=== PATIENT | female | born 1960 | race Caucasian/White ===

== ENCOUNTER 2019-10-06 08:26 | Outpatient (CLI) | payer MEDICARE ==
[~2019-10-06] VITALS: Ht 162.6 cm; Wt 103.7 kg
--- NOTE | ~2019-10-06 | OP ---
PATIENT NAME: CURRY CALLE MEDICAL RECORD: [id number] :56 LOCATION:D.CAT ADMISSION DATE: SURGEON: LIA VAZQUEZ MD DATE OF OPERATION: 10/06/2019 PROCEDURES: 1. PTCA stent RCA. 2. Selective coronary angiography. INDICATION: Angina and coronary artery disease. PROCEDURE IN DETAIL: After informed consent was obtained and after a detailed description of the risks, benefits as well as alternative therapies, the patient elected to proceed with angiogram and angioplasty. The right femoral area was prepped and draped in normal sterile fashion. Right femoral artery was cannulated via modified Seldinger technique with placement of 6-Nepali sheath. All catheters exchanged through this sheath. FINDINGS: The right coronary has long area of 80% stenosis in mid vessel. This was addressed with a 2.75 x 38 and 2.5 x 12 both Daniel stents. Result was 0% residual stenosis. OVERALL IMPRESSION: Successful percutaneous transluminal coronary angioplasty stent of the right coronary artery going from 80% initial stenosis to 0% residual. TRANSINT:[id number] Voice Confirmation ID: [id number] DOCUMENT ID: [id number] LIA VAZQUEZ MD CC: [id number] DICTATION DATE: 10/06/19 1242 RN BABY: 10/06/192229 DEP CLI 10/06/19 [place] [id number] [place] [id number]
--- NOTE | ~2019-10-06 | HEMODYNAMI ---
PATIENT:CURRY CALLE MEDICAL RECORD: [id number] : 56 LOCATION:D.CAT ADMISSION DATE: 10/06/19 Generatedon:10/06/201912:43 Patient name: CURRY CALLE Patient #: [id number] SSN: [id number] : 1960 Date of study: 10/06/2019 Page: Of Hemodynamic Procedure Report Patient Data Patient Demographics Procedure consent was obtained First Name: CURRY Gender: Female Last Name: ALVA : 1960 [facility] Initial: K Age: 59 year(s) Patient #: [id number] Race: SSN: [id number] Additional ID: [id number] Contact details Address: [address] [place] [address] [employer] State: [place] City: [place] Zip code: [address] Past Medical History Allergies: No known allergies Admission Admission Data Admission Date: 10/06/2019 Admission Time: 8:26 Arrival Date: 10/06/2019 Arrival Time: 8:26 Admit Source: Other Insurance Payor: Private health insurance [facility] #: [id number] Height (in.): 25.2 BSA: 1.05 (m2) Height (cm.): 64 BMI: 253.6 (kg/m2) Weight (lbs.): 229 Weight (kg.): 103.87 Lab Results Lab Result Date: 10/01/2019 Lab Result Time: 0:00 Biochemistry Name Units Result Min Max BUN mg/dl 52 --(----)-* 7 18 Creatinine mg/dl 2.5 --(----)-* 0.6 1.3 eGFR ml/min 21 *-(----)-- 90 120 NONAFRICAN CBC Name Units Result Min Max Hemoglobin g/dl 11.7 *-(----)-- 13.5 17.5 Procedure Procedure Types Cath Procedure Diagnostic Procedure Sedation Charges Moderate Sedation up to 15 minutes PCI Procedure Coronary Stent Coronary Stent Initial Hemochron ACT Test Procedure Description Procedure Date Procedure Date: 10/06/2019 Procedure Start Time: 12:25 Procedure End Time: 12:41 Procedure Staff Name Function Jg Rizvi MD Performing Physician Radha Pizarro RT Monitor Kayli Mao RT Scrub Hermelinda Gonzalez RN Nurse Indication Angina Procedure Data Cath Procedure Fluoroscopy Diagnostic fluoroscopy Total fluoroscopy Time: 3.9 time: 3.9 min min Diagnostic fluoroscopy Total fluoroscopy dose: dose: 259.48 mGy 259.48 mGy Contrast Material Contrast Material Type Amount (ml) Isovue 300 43 Entry Location Entry Primary Successful Side Size Upsize Upsize Entry Closure Succes sful Closure Location (Fr) 1 (Fr) 2 (Fr) Remarks Device Remarks Femoral Right 6 Fr Exoseal artery Short Estimated blood loss: 10 ml Procedure Complications No complications Procedure Medications Medication Administration Route Dosage 0.9% NaCl I.V. 100 ml/hr Oxygen etCO2 Nasal cannula 2 l/min Lidocaine 2% added to field 20 Heparin Flush Bag added to field 2 bags (1000units/500ml NS) Versed I.V. 2 mg Fentanyl I.V. 50 mcg Heparin Bolus I.V. 4000 units Fentanyl I.V. 50 mcg Hemodynamics Rest BSA: 1.05 (m2) HGB: 11.7 (g/dl) O2 Consumption: Estimated: 101.05 (ml/min) O2 Co nsumption indexed: Estimated:96.24 (ml/min/m) Heart Rate: 75 (bpm) Snapshots Pre Cath Intra NCS Post Cath Vital Signs Time Heart Resp SPO2 etCO2 NIBP (mmHg) Rhythm Pain Sedation Rate (ipm) (%) (mmHg) Status Level (bpm) 12:06:53 76 21 95 26.6 159/84(134) NSR 0 (11) 10(A) , No pain 12:11:13 77 20 97 21.4 168/94(132) NSR 0 (11) 10(A) , No pain 12:15:35 77 18 94 28.8 162/79(119) NSR 0 (11) 10(A) , No pain 12:19:57 73 13 99 30.2 159/72(112) NSR 0 (11) 10(A) , No pain 12:24:11 71 13 98 32.5 148/79(121) NSR 0 (11) 9(A) , No pain 12:28:29 71 12 98 31 146/75(108) NSR 0 (11) 9(A) , No pain 12:32:49 72 14 98 22.9 144/72(109) NSR 0 (11) 9(A) , No pain 12:37:09 75 13 99 31 154/76(118) NSR 0 (11) 10(A) , No pain 12:41:26 75 14 98 31 154/79(114) NSR 0 (11) 10(A) , No pain Medications Time Medication Route Dose Verified Delivered Reason Notes Effectiveness by by 12:06:13 0.9% NaCl I.V. 100 Jg Amparo used for ml/hr Belkys Alexis retread builder 12:06:20 Oxygen etCO2 2 Jg Amparo used for Nasal l/min Belkys Alexis procedure cannula RN 12:06:25 Lidocaine 2% added 20ml Jg Jg for local to vial Belkys Rizvi MD anesthetic field 12:06:29 Heparin Flush added 2 Jg Jg used for Bag to bags Belkys Rizvi MD procedure (1000units/500ml field NS) 12:22:17 Versed I.V. 2 mg Jg Shen for sedation Belkys Gonzalez RN 12:22:24 Fentanyl I.V. 50 Jg Tellezie for sedation mcg Belkys Gonzalez RN 12:28:06 Heparin Bolus I.V. 4000 Jg Tellezie for verif ied units Belkys Gonzalez RN anticoagulation with dr rizvi 12:33:35 Fentanyl I.V. 50 Jg Shen for sedation mcg Belkys Gonzalez RN Procedure Log Time Note 11:30:07 Informed consent obtained and on chart 11:44:38 Diagnostic Cath Status : Elective 11:44:59 Indication : Angina 11:45:27 Arrival Date: 10/06/2019 8:26:00 AM 11:45:31 Admit Source: Other 11:45:54 Insurance Payor : Private health insurance 11:46:07 Patient Height : 25.2 inches 11:46:11 Patient Weight : 229 lbs 11:51:51 Oksana Chavez RT(R) sent for patient. Start room use. 11:51:51 Time tracking: Regular hours (M-F 7:00 - 5:00) 11:51:56 Plan of Care:Hemodynamics will remain stable., Cardiac rhythm will remain stable., Comfort level will be maintained., Respiratory function will remain adequate., Patient/ family verbilizes understanding of procedure., Procedure tolerated without complication., Recovers from procedure without complications.. 12:03:51 Patient received from Pre/Post Procedure Room to [facility] 3 Alert and oriented. Tansferred to table in Supine position. 12:03:55 Warm blankets applied, and darryl hugger turned on for patient comfort. 12:03:56 Correct patient and procedure confirmed by team. 12:03:57 ECG and BP/O2 sat monitors applied to patient. 12:05:38 Vital chart was started 12:05:40 Baseline sample Acquired. 12:06:13 0.9% NaCl 100 ml/hr I.V. was administered by Amparo Alexis RN; used for procedure; Verbal order read back and verified. 12:06:20 Oxygen 2 l/min etCO2 Nasal cannula was administered by Amparo Alexis RN ; used for procedure; Verbal order read back and verified. 12:06:25 Lidocaine 2% 20ml vial added to field was administered by Jg Rizvi MD; for local anesthetic; Verbal order read back and verified. 12:06:29 Heparin Flush Bag (1000units/500ml NS) 2 bags added to field was administered by Jg Rizvi MD; used for procedure; Verbal order read back and verified. 12:08:19 Rhythm: sinus rhythm 12:08:24 Full Disclosure recording started 12:08:25 - 12:08:31 H&P Date Dictated: 10/06/2019 H&P Addendum completed by physician on day of procedure. (MUST COMPLETE FOR ALL OUTPATIENTS), New H&P dictated by physician.. 12:08:33 Pre-procedure instructions explained to patient. 12:08:33 Pre-op teaching completed and patient verbalized understanding. 12:08:40 Family in patients room. 12:13:38 Patient NPO since Midnight. 12:13:47 Patient allergic to No known allergies 12:13:51 Is the patient allergic to Iodine/contrast media? No. 12:14:12 Was the patient premedicated? Yes 12:14:25 Is patient on blood thinner?Yes 12:14:30 ACC The patient was administered the following blood thiners within the last 24 hours: ACCEffient 12:14:34 Patient diabetic? Yes. 12:14:38 If diabetic: On Metformin? No 12:14:40 ----Pre-sedation anethsthesia assessment.---- 12:14:44 Previous problem with sedation/anesthesia? No ? 12:14:46 Snore? Yes 12:14:49 Sleep apnea? No 12:14:51 Deviated septum? No 12:14:54 Opens mouth fully? Yes 12:14:56 Sticks out tongue? Yes 12:15:00 Airway obstruction? No ? 12:15:09 Dentures? Yes in tight 12:15:21 Pre procedure: right dorsailis pedis pulse 1+ Palpable, but thready & weak; easily obliterated 12:15:26 Patient pain scale 0/10 ?. 12:15:40 IV patent on arrival in left hand with 0.9% NaCl at O. 12:15:53 Lab results completed and on chart. 12:15:58 Stress Test: no; N/A ? 12:16:04 Risk of Mortality: 1.4 12:16:09 Risk of blood transfusion: 2.8 12:16:14 Risk of ANNAMARIA: 15.4 12:16:22 Right groin area was prepped with chlora-prep and draped in sterile fashion 12:16:25 Alarms reviewed by R. N. 12:16:28 Sharps counted by scrub and verified by R.N. 12:16:47 Use device set TAUTH PCI 12:16:49 INFLATOR Merit BasixCompak (DP7559) opened to sterile field. 12:17:04 Use device set Femoral Dx 12:17:10 EMERALD Guide Wire (056-045) opened to sterile field. 12:17:13 Tegaderm 4 x 4 (1626W) opened to sterile field. 12:17:17 ACIST Manifold (24153) opened to sterile field. 12:17:18 ACIST Hand Control (80754) opened to sterile field. 12:17:20 ACIST Syringe (54165) opened to sterile field. 12:17:30 Bag Decanter () opened to sterile field. 12:17:31 Medline Cath Pack ([id number]) opened to sterile field. 12:18:08 Zero performed for pressure channel P1 12:18:26 Zero performed for pressure channel P1 12:21:05 Physician arrived 12::06 --------ALL STOP TIME OUT------ 12:21:07 Final Timeout: patient, procedure, and site verified with staff and physician. All members of the team are in agreement. 12:21:09 Right groin site verified by team. 12:21:15 Fire Safety Assessment: A--An alcohol-based skin anteseptic being used preoperatively., C--Open oxygen or nitrous oxide is being used., D--An ESU, laser, or fiber-optic light is being used. 12:21:20 Physical assessment completed. ASA score P 2 - A patient with mild systemic disease as per Jg Rizvi MD. 12:21:24 4) 15-29 [place]ley reduced kidney function. 12:22:17 Versed 2 mg I.V. was administered by Hermelinda Gonzalez RN; for sedation; Verbal order read back and verified. 12:22:24 Fentanyl 50 mcg I.V. was administered by Hermelinda Gonzalez RN; for sedation; Verbal order read back and verified. 12:23:12 Maximum allowable contrast dose (3.7 X eGFR X 0.75)61 ml. 12:23:18 Sedation plan: IV Moderate Sedation Medication:Versed, Fentanyl 12:23:35 Procedure started. 12:25:10 Local anesthetic to right femoral artery with Lidocaine 2% by Jg Rizvi MD.INITIAL ACCESS ONLY 12:25:26 A 6 Fr Short sheath was inserted into the Right Femoral artery 12:26:52 GUIDE 6FR AR 2.0 catheter ([id number]) opened to sterile field. 12:27:02 GRAPHIX 182cm guide wire ([id number]) opened to sterile field. 12:27:53 6 Fr ar 2 guide catheter was inserted over the wire 12:28:06 Heparin Bolus 4000 units I.V. was administered by Hermelinda Gonzalez RN; for anticoagulation; verified with dr rizvi Verbal order read back and verified. 12:29:23 GUIDE 6FR EBU 3.0 catheter ([id number]) opened to sterile field. 12:30:11 Bottom denture removed due to becoming loose. 12:30:56 6 Fr ebu 3 guide catheter was inserted over the wire 12:31:16 graphix 182 wire advanced. 12:31:58 RCA angiography performed. 12:32:21 Pre PCI Site: [place] mRCA has 80% stenosis. 12:32:29 ACC Pre-intervention MANAV Flow is 3. 12:33:35 Fentanyl 50 mcg I.V. was administered by Hermelinda Gonzalez RN; for sedation; Verbal order read back and verified. 12:34:17 Place stent Inflation Number: 1 A MASSIMO RX 2.75 x 38 stent ([id number] ) was prepped and advanced across the Mid RCA . The stent was deployed at 17 IVA for 0:00 (min:sec) . 12:34:47 Stent catheter was removed intact over wire. 12:35:54 Place stent Inflation Number: 2 A MASSIMO RX 2.5 x 12 stent ([id number]) was prepped and advanced across the Mid RCA . The stent was deployed at 13 IVA for 0:00 (min:sec) . 12:36:17 Stent catheter was removed intact over wire. 12:36:26 Wire removed. 12:36:27 Guide catheter removed. 12:36:38 EXOSEAL 6Fr (EX600) opened to sterile field. 12:36:56 Sheath removed intact; hemostasis achieved with Exoseal to the Right Femoral artery. 12:37:03 Procedure ended.(Physican Out) 12:37:48 Post PCI Site: [place] mRCA has 0% stenosis. 12:37:54 ACC Post-intervention MANAV Flow is 3. 12:38:04 Fluoroscopy time 03.90 minutes. 12:38:14 Flurop Dose total: 259.48 12:38:14 Fluoroscopy dose: 259.48 mGy 12:38:23 Dose Area Product 1897.69 mGy/cm. 12:38:31 Contrast amount:Isovue 300 43ml. 12:38:35 Maximum allowable dose exceeded? No. 12:38:36 Sharps counted by scrub and verified by R.N. 12:38:39 Insertion/operative site no bleeding no hematoma. 12:38:44 Post-op/insertion site Right Femoral artery dressed using a 4 x 4 and Tegaderm. 12:38:49 Post right femoral artery:stable 12:38:51 Post Procedure Pulses reassessed and unchanged 12:38:57 Post-procedure physical assessment completed. ASA score P 2 - A patient with mild systemic disease as per Jg Rizvi MD. 12:39:02 Post procedure rhythm: unchanged. 12:39:06 Estimated blood loss: 10 ml 12:39:07 Post procedure instruction explained to patient.Patient verbalizes understanding. 12:39:08 Patient needs reinforcement of post procedure teaching. 12:39:41 Procedure type changed to Cath procedure, Diagnostic procedure, Sedatio n Charges, Moderate Sedation up to 15 minutes, PCI procedure, Coronary Stent, Coronary Stent Initial, Hemochron ACT Test 12:39:44 Procedure and supply charges have been captured, reviewed, submitted an d are correct. 12:40:08 ACT drawn and resulted at 343 seconds. (normal therapeutic range 180-24 0 seconds). 12:41:07 Procedure Complication : No complications 12:41:11 Vital chart was stopped 12:41:13 [facility] Findings: MVD- PCI performed (see procedure note) 12:41:20 Operative report dictated upon procedure completion. 12:41:22 See physician's report for complete and final results. 12:41:26 Report given to Pre/Post Procedure Room. 12:41:31 Patient transfered to Pre/Post Procedure Room with Stretcher. 12:41:34 Procedure ended. 12:41:34 Full Disclosure recording stopped 12:41:40 End room use (Document Last) Intervention Summary Intervention Notes Time ActionType Lesion and Equipment Used Action# Pressure Duration Attributes 12:34:17 Place stent Mid RCA MASSIMO RX 2.75 x 1 17 00:00 38 stent ([id number]) 12:35:54 Place stent Mid RCA MASSIMO RX 2.5 x 2 13 00:00 12 stent ([id number]) Device Usage Item Name Manufacture Quantity Catalog Number Hospital Part Current M inimal Lot# / Charge Number Stock Stock Serial# Code INFLATOR Merit Merit 1 [id number] 593774 475508 1 5 [employer] ([id number]) EMERALD Guide Cardinal 1 995-257 958580 034117 026193 5 Wire (611-020) Topic Tegaderm 4 x 4 3M 1 1626W 462300 432414 367450 5 (1626W) ACIST Manifold Acist 1 17860 183854 880436 113850 5 (31260) Medical Systems Inc ACIST Hand Acist 1 83829 869745 912453 720020 5 Control Medical (09793) Systems Inc ACIST Syringe Acist 1 42173 753989 630952 865360 2 0 (52880) Medical Systems Inc Bag Decanter Microtek 1 2001S 405396 43945 080281 5 (2001S) Medical Inc. Medline Cath Medline 1 [id number] 243898 68871 974212 5 Pack ([id number]) GUIDE 6FR AR Medtronic 1 [id number] 004887 32118 411676 1 2.0 catheter ([id number]) GRAPHIX 182cm [place] 1 [id number] 929894 214534 156519 5 guide wire Scientific ([id number]) GUIDE 6FR EBU Medtronic 1 [id number] 048899 61140 453692 0 3.0 catheter ([id number]) MASSIMO RX 2.75 x Medtronic 1 [id number] 044377 9889053 674070 5 [id number] 38 stent ([id number]) MASSIMO RX 2.5 x Medtronic 1 [id number] 169771 6471087 238969 5 [id number] 12 stent ([id number]) EXOSEAL 6Fr Cardinal 1 EX600 989015 554453 864403 1 0 (EX600) Health Signature Audit [place] Stage Time Signature Unsigned Intra-Procedure 10/06/2019 Radha 12:42:42 PM Juarez RT(R) (CV) Intra-Procedure 10/06/2019 Hermelinda Gonzalez RN 12:43:10 PM Intra-Procedure 10/06/2019 Jg Rizvi 12:43:37 PM [place] [id number] [place] [address]
[~2019-10-06 08:26] MED LIST: ASPIRIN81 MG PO; BASAGLAR K100 UNIT/1 SC; BUMEX2 MG PO; CARDURA1 MG PO; CLARITIN 10 MG10 MG PO; EFFIENT10 MG PO; FERROUS SULFAT325 MG PO; FLUTICASONE PRO16 GM; ISOSORBIDE MONO60 M1 PO; JANUVIA100 MG PO; K-TAB10 MEQ PO; METOPROLOL TART50 MG PO; NEURONTIN600 MG PO; NITROSTAT0.4 MG SL; OMEPRAZOLE20 M1 PO; REPATHA SY140 MG/1 M SC; TUMS X-STR300 MG PO
[2019-10-06 09:02] VITALS: BP 148/77; Ht 162.6 cm; Wt 103.7 kg
[2019-10-06 09:04] LABS: BASOPHILS 0.2 % (0-2); EOSINOPHILS 3.8 % (0-7); HEMATOCRIT 34.3 % (36.0-48.0); HEMOGLOBIN 11.3 g/dL (12-16); IMMATURE GRANULOCYTES 0.2 % (0-5); LYMPHOCYTES 12.6 % (15-50); MCH 29.2 pg (26.0-34.0); MCHC 32.9 g/dL (31.0-37.0); MCV 88.6 fL (80.0-100.0); MEAN PLATELET VOLUME 9.2 fL (7.4-10.4); MONOCYTES 5.6 % (2-11); NEUTROPHILS 77.6 % (40-80); PLATELET COUNT 190 10x3/uL (130-400); RBC 3.87 10x6/uL (4.00-5.40); RDW 14.7 % (11.5-14.5)
[2019-10-06 09:23] LABS: ANION GAP 13.4 mmol/L (8-16); CARBON DIOXIDE 24.6 mmol/L (21.0-32.0); CHOL - HDL RATIO 4.8 ratio (2.3-4.1); CREATININE - SERUM 2.4 mg/dL (0.6-1.3); LDL-HDL RATIO 2.4 ratio (1.5-3.5)
--- NOTE | 2019-10-06 12:55 | NUR ---
REC'D TO ROOM 2 VIA STRETCHER, S/P SIEBEL SOLUTION ARCHITECT. MONITORS ESTAB. 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 ALARMS ON AND C/L IN REACH.
--- NOTE | 2019-10-06 13:10 | NUR ---
R GROIN SITE C/D/I, FEM STOP IN PLACE. R LEG WARM WITH PALP PULSE AND BRISK CAP REFILL. VSS.
--- NOTE | 2019-10-06 13:40 | NUR ---
R GROIN SITE C/D/I, NO S/S BLEEDING OR HEMATOMA. FAMILY AT BS. VSS.
--- NOTE | 2019-10-06 13:55 | NUR ---
R GROIN SITE C/D/I, NO S/S BLEEDING OR HEMATOMA. FEM STOP IN PLACE, BEGIN REMOVING AIR, 20CC, NO S/S BLEEDING - WILL CONT CLOSE MONITORING. VSS.
--- NOTE | 2019-10-06 14:30 | NUR ---
R GROIN SITE C/D/I, AIR REMOVED FROM FEMSTOP TO 60MMHG, NO S/S BLEEDING - WILL CONT CLOSE MONITORING.
--- NOTE | 2019-10-06 15:00 | NUR ---
R GROIN SITE C/D/I, AIR REMOVED FROM TR BAND TO 45 MMHG, NO S/S BLEEDING, VSS. FAMILY AT BS.
--- NOTE | 2019-10-06 15:23 | NUR ---
AIR REMOVED FORM FEMSTOP. NO S/S BLEEDING. BED PUT IN REVERSE [place], TAKING SIPS OF WATER WITHOUT DIFFICULTY. DAUGHTERS AT BS. SANDWICH TRAY PROVIDED PER THEIR REQUEST. ASPIRATION PRECAUTIONS EXPLAINED TO PT AND FAMILY.
--- NOTE | 2019-10-06 15:50 | NUR ---
DR. VAZQUEZ IN TO SEE PT, UPDATE GIVEN AND QUESTIONS ANSWERED. FEMSTOP OFF, R GROIN SITE SOFT, C/D/I, NO S/S BLEEDING OR HEMATOMA. ALARMS ON AND C/L IN REACH.
--- NOTE | 2019-10-06 16:14 | NUR ---
PT HOB UP, R GROIN SITE C/D/I, NO S/S BLEEDING OR HEMATOMA. FAMILY AT BS VISITING. ALARMS ON AND C/L IN REACH.
--- NOTE | 2019-10-06 16:39 | NUR ---
R GROIN SITE SOFT, C/D/I. PIV D/C'D INTACT, DSG APPLIED. VSS.
--- NOTE | 2019-10-06 16:50 | NUR ---
ALL DISCHARGE INSTRUCTIONS REVIEWED WITH PT AND HER SISTER. PT ALLOWED UP TO GET DRESSED.
--- NOTE | 2019-10-06 17:00 | NUR ---
PT UP TO BR INDEPENDENTLY, THEN D/C'D VIA WC TO PRIVATE VEHICLE WITH ALL PAPERWORK AND BELONGINGS.
== END 2019-10-06 17:02 | disposition home or self-care (01) ==
LOC: D.CATH 08:26
PROVIDERS: ATTEND Internal Medicine Interventional Cardiology
DX: I25.110 Atherosclerotic heart disease of native coronary artery with unstable angina pectoris (principal); I10 Essential (primary) hypertension; E78.5 Hyperlipidemia, unspecified; E11.9 Type 2 diabetes mellitus without complications; R06.09 Other forms of dyspnea